=== PATIENT | female | born 1980 | race Caucasian/White ===

== ENCOUNTER 2016-05-24 10:07 | Outpatient (CLI) ==
--- NOTE | 2016-05-24 11:11 | DI ---
EXAM: Four views of the lumbar spine HISTORY: Lower back pain. COMPARISON: MRI lumbar spine 11/06/2008 FINDINGS: The facets are normal. The vertebral bodies demonstrate no acute compression fracture or subluxation. The lumbosacral junction is intact. Vertebral body height, disc space and alignment a re maintained. Posterior processes are normal. The soft tissues are unremarkable. IMPRESSION: No acute abnormality or compression fracture of the lumbar spine.
== END 2016-05-24 10:08 | disposition home or self-care (01) ==
LOC: LAB 10:07
PROVIDERS: ATTEND Pain Medicine Interventional Pain Medicine
DX: M51.16 Intervertebral disc disorders with radiculopathy, lumbar region (principal); M51.17 Intervertebral disc disorders with radiculopathy, lumbosacral region; M99.33 Osseous stenosis of neural canal of lumbar region